=== PATIENT | male | born 1950 | race Caucasian/White ===

== ENCOUNTER 2021-05-03 14:14 | Outpatient (CLI) | payer MEDICARE, SELFPAY ==
--- NOTE | 2021-05-03 14:27 | CT_ITS ---
WS: [id number] CT NECK TECHNIQUE: Contrast-enhanced CT of the neck with coronal and sagittal reformatted images. CLINICAL INFORMATION: NECK PAIN, DYSPHAGIA COMPARISON: None. DLP: 920.[address] scans at [facility] use at least one of these dose optimization techniques: automated e xposure control; mA and/or kV adjustment per patient size (includes targeted exams where dose is matc hed to clinical indication); or iterative reconstruction. FINDINGS: In the area of palpable marker right lower neck, normal underlying subcutaneous soft tissue s. Normal underlying strap muscles. No evidence of underlying pathologic mass or lesion. Normal fountain ocleidomastoid and platysma. Parotid glands are normal. Normal submandibular glands. Normal parapharyngeal fat. Mastoid air cells and paranasal sinuses are well aerated where visualized. Carotid bulb calcification. Normal posterior nasopharynx. No evidence of supraglottic or glottic mass. Normal vallecula and pirif orm sinuses. Fibrosis in the lung apices. No cervical lymphadenopathy. Moderate spondylitic changes c ervical spine. Disc space narrowing worse at C4-C6. CT/CT neck w con* [id number] IMPRESSION: 1. In the area of palpable marker right lower neck, normal underlying subcutan eous soft tissues. Normal underlying strap muscles. No evidence of underlying p athologic mass or lesion. 2. No evidence of supraglottic or glottic mass. 3. No cervical lymphadenopathy. 4. Normal salivary glands.
[2021-05-03] MEDS: iohexol 300 mg/mL 100 mL Btl IV (14:42)
== END 2021-05-03 14:15 | disposition home or self-care (01) ==
PROVIDERS: Visit Provider Family Medicine
DX: M54.2 Cervicalgia (principal); R13.10 Dysphagia, unspecified
CPT/HCPCS: 70491; Q9967

== ENCOUNTER → 2022-10-11 12:05 | Outpatient (BNVA) | payer MEDICARE, SELFPAY | PROVIDERS: PCP Family Medicine; Visit Provider Family Medicine | DX: Z00.00 Encounter for general adult medical examination without abnormal findings (principal); E55.9 Vitamin D deficiency, unspecified; E03.9 Hypothyroidism, unspecified; E53.8 Deficiency of other specified B group vitamins; R35.0 Frequency of micturition | CPT/HCPCS: 80053; 80061; 82306; 82607; 84153; 84443 ==

== ENCOUNTER 2023-08-18 07:39 | Outpatient (CLI) | payer MEDICARE, SELFPAY ==
--- NOTE | 2023-08-18 | ECG_ITS ---
[facility] Test Date: 2023-08-18 Pat Name: Saad Benitez Department: Room: Gender: Male [employer] Technician: : 1950 Requested By: Adrian Mandel Order Number: [id number] Meño MD: Yuriy Mata M.D. Interpretive Statements NAME OF STUDY: EXERCISE SESTAMIBI STRESS TEST INDICATION: Chest Pain PROCEDURE: The baseline electrocardiogram showed normal sinus rhythm with a poor R wave progression. Poor R wave progression. At the baseline, the patient's blood pressure was 173/94 mm Hg with a heart rate of 66. The patient exercised for 4 minutes and 31 seconds on a standard Yossi protocol. Patient attained a maximum heart rate of 135 beats per minute(90% of the maximum predicted heart rate) with a blood pressure at the peak exercise of mm Hg. The EKG at the peak exercise revealed diffused nonspecific ST-T changes. Patient did not have any chest pain or any significant arrhythmis with the exercise Sestamibi was injected 1 minute prior to the peak exercise During the recovery phase, there were no new changes. Blood pressure at the end of the recovery phase was 178/90 mm Hg with a heart rate of 72 per minute. CONCLUSION: 1. Nonspecific EKG response to treadmill exercise 2. No exercise-induced chest pain or cardiac arrhythmia 3. Impaired exercise tolerance, attained a maximum of 7.0 METs 4. Sestamibi/Sestamibi perfusion results pending; see separate report. Electronically Signed On 09-01-2023 16:20:19 BIOINFORMATICS SCIENTIST by Yuriy Mata M.D. [email or web address]
[2023-08-18 08:17] VITALS: BMI 24.3
--- NOTE | 2023-08-18 08:43 | NMCV_ITS ---
NM katelyn perf SPECT r/s* [id number] Saad Benitez Age: 72 Gender: M : 1950 Exam Date: 08/18/2023 08:52 Ordering Phys: Adrian Gonzalez MD Technologist: PATY Mccray Exam Location: [facility] Indications: CHEST PAIN STRESS TEST Please see separate stress test report in [facility] for full findings IMAGE PROTOCOL Rest/Stress 1 Exercise Day Radiopharmaceutical Dose (mCi) Administration Site Administered by Rest: Tc-99m 10.4 IV PATY Morse Sestamibi Stress:Tc-99m 32.4 IV PATY Morse Sestamibi Rest: 18-Aug-2023 60 Discovery 630 Stress: 18-Aug-2023 30 Discovery 630 Radiopharmaceutical was injected at 85 % maximum heart rate. Images obtained in supine and prone position. SPECT RESULTS Technical Quality: Excellent Raw Data Analysis: Normal Image Corrections: No attenuation or motion correction applied Summed Stress Score: 9 Summed Rest Score: 6 Summed Difference Score: 3 PERFUSION FINDINGS Moderate area of moderate to severely decreased tracer uptake was noted in the basal and mid inferolateral, mid inferior and apical lateral regions. Some reversibility was noted reversibility was noted in the mid inferior and mid inferolateral region. FUNCTIONAL RESULTS (calculated via Gated SPECT) Stress Image LV EF (%): 77 Stress EDV (mL):75 TID: 0.92 Stress ESV (mL):17 FUNCTIONAL FINDINGS: Segmental wall motion analysis revealing no gross wall motion abnormalities IMPRESSIONS 1. Myocardial perfusion imaging revealing moderate area of moderate to severely decreased to tracer uptake involving the inferior, inferolateral and apical lateral regions with some reversibility in the mid inferior and inferolateral region suggesting myocardial scarring in the distribution of the left circumflex artery artery/right coronary artery with ischemia, predominantly in the distribution of the circumflex artery . 2. Normal LV ejection fraction 77%. 3. LV wall motion analysis revealing no gross wall motion abnormalities. 4. Normal LV volume. No similar previous studies are available for comparison Dr Yuriy Mata MD [facility] (Electronically Signed) Final Date: 19 August 2023 09:50 S
[2023-08-18 09:49] VITALS: BP 178/90; PULSE 87
== END 2023-08-18 07:40 | disposition home or self-care (01) ==
PROVIDERS: PCP Family Medicine; Visit Provider Family Medicine
DX: R07.9 Chest pain, unspecified (principal); R93.1 Abnormal findings on diagnostic imaging of heart and coronary circulation
CPT/HCPCS: 36415; 78452; 93017; A9500

== ENCOUNTER → 2023-09-03 14:40 | Outpatient (BNVA) | payer MEDICARE, SELFPAY | PROVIDERS: PCP Family Medicine; Referring Provider Family Medicine; Visit Provider Internal Medicine Cardiovascular Disease | DX: R94.39 Abnormal result of other cardiovascular function study (principal); E03.9 Hypothyroidism, unspecified; E78.5 Hyperlipidemia, unspecified; I10 Essential (primary) hypertension; R07.89 Other chest pain | CPT/HCPCS: 99214 ==

== ENCOUNTER 2023-09-04 07:41 | Outpatient (CLI) | payer MEDICARE, SELFPAY ==
[2023-09-04 08:23] LABS: Alanine Aminotransferase 20 U/L (0-41); Albumin Level 4.1 g/dL (3.5-5.2); Alkaline Phosphatase 80 U/L (40-130); Aspartate Amino Transferase 18 U/L (0-40); Chol HDL Ratio 3.49 mg/dL (1.0-5.00); Cholesterol 171 mg/dL (0-200); Globulin 3.2 g/dL (1.3-4.6); HDL Cholesterol 49 mg/dL (60-100); LDL Cholesterol Calculated 109 mg/dL (50-129); LDL HDL Ratio 2.22 RATIO (0.00-3.22); Total Bilirubin 0.5 mg/dL (0.15-1.2); Total Protein 7.3 g/dL (6.6-8.7); Triglycerides 66 mg/dL (0-150); VLDL Cholestrol Calculation 13 mg/dL (0-30)
== END 2023-09-04 07:42 | disposition home or self-care (01) ==
LOC: LAB 07:42
PROVIDERS: PCP Family Medicine; Visit Provider Internal Medicine Cardiovascular Disease
DX: E78.5 Hyperlipidemia, unspecified (principal); E03.9 Hypothyroidism, unspecified
CPT/HCPCS: 36415; 80061; 80076

== ENCOUNTER 2023-09-09 14:31 | Outpatient (CLI) | payer MEDICARE, SELFPAY ==
--- NOTE | 2023-09-09 15:00 | USCV_ITS ---
Saad Benitez Age: 72 Gender: M : 1950 Exam Date: 09/09/2023 15:29 Ordering Phys: Yuriy Mata MD ([email or web address]) Technologist: Amy Lu [place] [facility] [place]ication: CASTILLO Abnormal Stress Test BP: 140 / 80 HR: 57 Rhythm: Sinus Technical Quality: Adequate MEASUREMENTS (Male / Female) Normal Values 2D ECHO LV Diastolic Diameter PLAX 4.8 cm 4.2 - 5.9 / 3.9 - 5.3 cm LV Systolic Diameter PLAX 2.0 cm LV Chamber Size 4.1 cm IVS Diastolic Thickness 1.0 cm 0.6 - 1.0 / 0.6 - 0.9 cm IVS Systolic Thickness 1.1 cm LVPW Diastolic Thickness 1.1 cm 0.6 - 1.0 / 0.6 - 0.9 cm LVPW Systolic Thickness 1.3 cm RV Chamber Size 2.3 cm LVOT Diameter 2.0 cm LV Ejection Fraction 2D Teich 88.7 % LV Ejection Fraction MOD 2C 51.6 % LV Ejection Fraction 2C AL 57.8 % LA Diameter 3.7 cm LA Width 3.7 cm LA Height 4.2 cm RA Width 3.3 cm RA Height 2.9 cm Aorta at Sinotubular Diameter 3.4 cm IVC Diameter 1.0 cm M-MODE Aortic Annulus Diameter 3.2 cm LA Ao Ratio MM 1.3 MV E Point Septal Separation 0.4 cm DOPPLER AV Peak Velocity 108.0 cm/s LVOT Peak Velocity 108.0 cm/s AV Area Cont Eq vti 3.0 cm squared AV Area Cont Eq pk 3.3 cm squared MV Area PHT 3.6 cm squared Mitral E to A Ratio 1.0 MV E' Velocity 48.5 cm/s Mitral E to MV E' Ratio 11.0 Mitral E to LV E' Lateral Ratio 9.5 Mitral E to LV E' Septal Ratio 13.4 TR Peak Velocity 148.3 cm/s TR Peak Gradient 8.8 mmHg TR Mean Velocity 144.7 cm/s TR Mean Gradient 8.9 mmHg TR Velocity Time Integral 44.8 cm TV Peak E Velocity 50.0 cm/s Right Atrial Pressure 3.0 mmHg Pulmonary Artery Systolic Pressu 11.8 mmHg PV Peak Velocity 0.0 cm/s RV Acceleration Time 0.2 s RV Ejection Time 0.3 s RV AcT/ET 0.5 FINDINGS Left Ventricle Normal left ventricular size and systolic function, EF 58 %. No regional wall motion abnormalities. Mild left ventricular hypertrophy. Grade I/IV diastolic dysfunction (abnormal relaxation filling pattern), normal to mildly elevated filling pressures. Right Ventricle The right ventricle is normal in size and function. Right Atrium The right atrium is normal in size. Left Atrium The left atrium is normal in size. Mitral Valve Thickened mitral valve. Trace mitral valve regurgitation. Aortic Valve Thickened aortic valve. Tricuspid Valve No gross abnormalities noted Pulmonic Valve Pulmonic valve not well visualized. Pericardium Normal pericardium without effusion. Aorta Normal ascending aorta dimension. IVC Normal inferior vena cava. CONCLUSIONS Normal left ventricular size and systolic function, EF 58 %. No regional wall motion abnormalities. Mild left ventricular hypertrophy. Grade I/IV diastolic dysfunction (abnormal relaxation filling pattern), normal to mildly elevated filling pressures. Thickened mitral valve. Trace mitral valve regurgitation. Thickened aortic valve. There is no pericardial effusion. There are no intracardiac masses. No similar previous studies are available for comparison Dr Yuriy Mata MD [facility] (Electronically Signed) Final Date: 09 September 2023 21:30 S
== END 2023-09-09 14:32 | disposition home or self-care (01) ==
LOC: RAD 14:31
PROVIDERS: PCP Family Medicine; Visit Provider Internal Medicine Cardiovascular Disease
DX: I08.0 Rheumatic disorders of both mitral and aortic valves (principal); R06.09 Other forms of dyspnea
CPT/HCPCS: 93306

== ENCOUNTER → 2023-12-03 10:12 | Outpatient (BNVA) | payer MEDICARE, SELFPAY | PROVIDERS: PCP Family Medicine; Visit Provider Internal Medicine Cardiovascular Disease | DX: R94.39 Abnormal result of other cardiovascular function study (principal); I10 Essential (primary) hypertension; E03.9 Hypothyroidism, unspecified; R07.9 Chest pain, unspecified | CPT/HCPCS: 99214 ==

== ENCOUNTER → 2024-07-06 09:52 | Outpatient (BNVA) | payer MEDICARE, SELFPAY | PROVIDERS: PCP Family Medicine; Visit Provider Nurse Practitioner Family | DX: I10 Essential (primary) hypertension (principal); R94.39 Abnormal result of other cardiovascular function study; Z72.820 Sleep deprivation | CPT/HCPCS: 99213 ==

== ENCOUNTER → 2024-08-20 08:23 | Outpatient (BNVA) | payer MEDICARE, SELFPAY | PROVIDERS: PCP Family Medicine; Visit Provider Family Medicine | DX: E03.9 Hypothyroidism, unspecified (principal); I10 Essential (primary) hypertension; G47.00 Insomnia, unspecified; E55.9 Vitamin D deficiency, unspecified; E53.8 Deficiency of other specified B group vitamins; E11.9 Type 2 diabetes mellitus without complications; Z00.00 Encounter for general adult medical examination without abnormal findings | CPT/HCPCS: 80053; 80061; 82306; 82607; 84443 ==

== ENCOUNTER → 2024-09-28 12:44 | Outpatient (BNVA) | payer MEDICARE, SELFPAY | PROVIDERS: PCP Family Medicine; Visit Provider Family Medicine | DX: N42.9 Disorder of prostate, unspecified (principal); R35.1 Nocturia | CPT/HCPCS: 80048; 84153 ==

== ENCOUNTER → 2024-10-25 08:09 | Outpatient (BNVA) | payer MEDICARE, SELFPAY | PROVIDERS: PCP Family Medicine; Visit Provider Family Medicine | DX: E87.1 Hypo-osmolality and hyponatremia (principal) | CPT/HCPCS: 80048 ==

== ENCOUNTER → 2025-05-05 10:22 | Outpatient (BNVA) | payer MEDICARE, SELFPAY | PROVIDERS: PCP Family Medicine; Visit Provider Internal Medicine Cardiovascular Disease | DX: R07.9 Chest pain, unspecified (principal); I49.9 Cardiac arrhythmia, unspecified; R94.39 Abnormal result of other cardiovascular function study; I10 Essential (primary) hypertension; E03.9 Hypothyroidism, unspecified; Z87.891 Personal history of nicotine dependence | CPT/HCPCS: 93005; 99214 ==

== ENCOUNTER → 2025-05-05 10:55 | Outpatient (BNVA) | payer MEDICARE, SELFPAY | PROVIDERS: PCP Family Medicine; Visit Provider Internal Medicine Cardiovascular Disease | DX: R07.9 Chest pain, unspecified (principal); I49.1 Atrial premature depolarization; I49.3 Ventricular premature depolarization | CPT/HCPCS: 93242 ==

== ENCOUNTER 2025-05-30 14:10 | Outpatient (CLI) | payer MEDICARE, SELFPAY ==
--- NOTE | 2025-05-30 14:16 | XRR_ITS ---
PROCEDURE INFORMATION: Exam: XR Orbits Exam date and time: 05/30/2025 2:30 PM Age: 74 years old Clinical indication: Injury or trauma; Fall; Blunt trauma (contusions or hematomas); Orbit/periorbital; Left; Injury details: PT fell on concrete porch 5 days ago, contusion lt side of face; Additional info: Eye pain/ contusion. No history of recent surgery is provided. TECHNIQUE: Imaging protocol: XR of the orbits. 5image(s) are provided. Views: Minimum of 4 views COMPARISON: 1. CR XR mandible min 4V [id number] 05/30/2025 2:30 PM. No previous orbits, facial series is currently available. 2. CT neck w con* [id number] 05/03/2021 2:39 PM FINDINGS: Paranasal sinuses: There is some patchy opacification of the left maxillary sinus along with suspected lobulated mucosal thickening asymmetrically. The remainder of the paranasal sinuses appear well-aerated overall. Bones/joints: No displaced fracture or dislocation type changes are currently appreciated. There are however some areas of questionable osseous irregularity for example including: with subtle lobulation about the left inferior orbital rim as well as of the suspected zygomatic arch. There appear to be some degenerative changes of the cervical spine. There appear to be some dental, periodontal related changes with maintained overall mandibular alignment. There does appear to be some subtle offset for example of the dentition, prosthetic margin anteriorly on the lateral view. This does appears similar. Soft tissues: No radiopaque foreign body or diffuse subcutaneous emphysema is appreciated. The mastoid air cells appear well-aerated overall. No other significant interval changes are appreciated. XR/[place] [id number] IMPRESSION: There is some asymmetric patchy opacification of the left maxillary sinus along with questionable areas of osseous irregularity including of the left inferior orbital rim and zygomatic arch. The maxillary findings could also be seen with processes including sinusitis related sequela although some element of subtle injury could also present in this fashion with the clinical history provided. Consider maxillofacial CT.
--- NOTE | 2025-05-30 14:16 | XRR_ITS ---
PROCEDURE INFORMATION: Exam: XR Left Mandible Exam date and time: 05/30/2025 2:30 PM Age: 74 years old Clinical indication: Injury or trauma; Fall; Blunt trauma (contusions or hematomas); Jaw; Left; Injury details: PT fell on concrete porch 5 days ago, contusion lt side of face; Additional info: Contusion, left jaw. No history of recent surgery is provided. TECHNIQUE: Imaging protocol: XR of the left mandible. 4image(s) are provided. Views: 4 or more views COMPARISON: 1[place] [id number] 05/30/2025 2:[address] neck w con* [id number] 05/03/2021 2:39 PM. No previous mandible series is currently available. FINDINGS: Paranasal sinuses: The orbit, paranasal sinus findings correlate with the facial description same day. Bones/joints: There appears to be some irregularity of the left zygomatic arch margins asymmetrically concerning for localized fracture. Mandibular condylar fossa alignment appears grossly maintained overall. There is some overlying airway, skin artifact. There is some questionable lucent irregularity although could also represent some processes including post interventional or periodontal related changes on the left mandibular view. No other displaced fracture or dislocation is currently appreciated. Soft tissues: No radiopaque foreign body or diffuse subcutaneous emphysema is appreciated. There does appear to be some slight prominence of the soft tissues overall. Consider if there is associated skin injury and swelling. No lobar consolidation is appreciated.No pneumothorax is appreciated. No other significant interval changes are appreciated. XR/XR mandible min 4V [id number] IMPRESSION: There are some areas of osseous irregularity concerning for injury for example about the left mandible as well as the left zygomatic arch with the associated cortical offset about the arch focus. Consider maxillofacial CT.
== END 2025-05-30 14:11 | disposition home or self-care (01) ==
LOC: RAD 14:12
PROVIDERS: PCP Family Medicine; Visit Provider Family Medicine
DX: S00.83XA Contusion of other part of head, initial encounter (principal); W18.39XA Other fall on same level, initial encounter; H57.12 Ocular pain, left eye; J32.0 Chronic maxillary sinusitis
CPT/HCPCS: 70110; 70200

== ENCOUNTER 2025-06-01 08:47 | Outpatient (CLI) | payer MEDICARE, SELFPAY ==
--- NOTE | 2025-06-01 09:00 | CT_ITS ---
WS: [id number] CT FACIAL BONES HISTORY: trauma to the face/ double vision/ abnormal x-ray TECHNIQUE: Images obtained from the supraorbital location through the mandible. Soft tissue and bone windows are reviewed. Coronal and sagittal reformats have also been submitted. DLP: 1183.[address] scans at [facility] use at least one of these dose optimization techniques: automated exposure control; mA and/or kV adjustment per patient size (includes targeted exams where dose is matched to clinical indication); or iterative reconstruction. COMPARISON: None available. Multiple fractures are present involving the LEFT facial bones. Nondisplaced fracture of the anterior LEFT zygomatic arch. There is also mild diastases of the LEFT zygomaticofrontal suture. Numerous fractures involving the vega of the LEFT maxillary sinus. Comminuted depressed fracture along the anterior wall. There are multiple fractures along the anterior wall. Numerous fractures along the floor of the LEFT orbit. Fracture fragments from the floor of the orbit are displaced inferiorly into the maxillary antrum by 7 mm. There is herniation of the orbital fat through the fracture site into the maxillary antrum. The inferior rectus muscle is closely associated with open fracture but does not herniate through at this time. Additional fracture involving the medial wall of the LEFT maxillary sinus and also the lateral wall of the maxillary sinus. Fractures of the lateral wall LEFT orbit is not displaced. Lamina papyracea are intact. Nasal bones also appear to be intact. LEFT orbital emphysema. There is air in the orbital fat. The globe appears to be intact. Mixed density in the LEFT maxillary sinus consistent with hematoma and blood products from the trauma. Small amount of soft tissue edema over the LEFT orbit and globe and zygoma. Mild mucoperiosteal thickening in the LEFT frontal and ethmoid air cells. No fracture involving the mandibular condyles. Maxilla is intact. Lucency surrounding the LEFT molars in the maxilla is probably from dental caries and not the trauma. Subcutaneous air is noted along the lateral mandible and maxilla from the trauma. Upper cervical spine is negative for fracture. CT/CT facial bones wo con* [id number] IMPRESSION: 1. Multiple displaced fractures involving the LEFT maxillary sinus. 2. LEFT orbital floor fracture with displacement of fractures inferiorly into the maxillary sinus. There is herniation of the orbital fat through the fractur e site. There is no herniation of the rectus muscles into the orbital blowout f racture. The inferior rectus muscle is very closely associated with the fractur e opening. Recommend evaluation by ENT to evaluate the orbital blowout fracture . 3. Nondisplaced fracture of the anterior LEFT zygoma. 4. Diastases of the LEFT zygomaticofrontal suture. 5. LEFT orbital emphysema. 6. Additional fractures involving the lateral and medial wall the LEFT orbit. 7. Variable density in the LEFT maxillary sinus from hemorrhage. 8. Lucency and loss of the normal bone surrounding the posterior most LEFT max illary molar. This is likely related to dental caries but due to the trauma rec ommend evaluation for tooth fracture. 9. Subcutaneous emphysema along the LEFT facial bones.
== END 2025-06-01 08:48 | disposition home or self-care (01) ==
LOC: RAD 08:50
PROVIDERS: PCP Family Medicine; Visit Provider Family Medicine
DX: S09.93XA Unspecified injury of face, initial encounter (principal); H53.2 Diplopia; R93.89 Abnormal findings on diagnostic imaging of other specified body structures; H05.89 Other disorders of orbit; S02.40DA Maxillary fracture, left side, initial encounter for closed fracture; S02.32XA Fracture of orbital floor, left side, initial encounter for closed fracture; S02.40FA Zygomatic fracture, left side, initial encounter for closed fracture; X58.XXXA Exposure to other specified factors, initial encounter
CPT/HCPCS: 70486